=== PATIENT | male | born 1990 | race Caucasian/White ===

== ENCOUNTER 2023-05-12 11:33 | Emergency (ER) | payer MEDICAID, OTHER ==
[~2023-05-12] VITALS: Ht 190.5 cm; Wt 195.5 kg
[2023-05-12] MEDS ORDERED: cloNIDine HCL 0.1 MG TAB PO ONE (12:00)
[2023-05-12 14:00] VITALS: BP 190/113; PULSE 109; RESP 18; TEMP 98.9; O2SAT 100
== END 2023-05-12 14:01 | disposition home or self-care (01) ==
LOC: ER 11:33
DX: S93.401A Sprain of unspecified ligament of right ankle, initial encounter (principal); I16.0 Hypertensive urgency; J45.909 Unspecified asthma, uncomplicated; Z88.6 Allergy status to analgesic agent; Z88.5 Allergy status to narcotic agent; X58.XXXA Exposure to other specified factors, initial encounter; Y93.89 Activity, other specified; Y92.89 Other specified places as the place of occurrence of the external cause; Y99.8 Other external cause status
CPT/HCPCS: 73610